=== PATIENT | female | born 1950 | race Caucasian/White ===

== ENCOUNTER 2020-02-17 00:05 | Inpatient (IN) | payer OTHER ==
[~2020-02-17] VITALS: Ht 149.9 cm; Wt 85.3 kg
[2020-02-17] MEDS ORDERED: GLIPIZIDE XL2.5 MG (00:42)
[2020-02-17] MEDS ORDERED: JANUMET 50-5001 EACH (00:42)
[2020-02-17] MEDS ORDERED: ZESTRIL5 MG (00:54)
[2020-02-17] MEDS ORDERED: SYNTHROID150 MCG PO (18:30)
[2020-02-17] MEDS ORDERED: LIPITOR40 M1 PO (18:30)
[2020-02-17] MEDS ORDERED: ADALAT CC30 MG PO (18:31)
[2020-02-17] MEDS ORDERED: PENTOXIFYLLINE400 MG PO (18:32)
[2020-02-17] MEDS ORDERED: RAYOS5 MG PO (18:32)
[2020-02-17] MEDS ORDERED: METOTREXATE PO (18:35)
[2020-02-17] MEDS ORDERED: ALENDRONATE SOD35 MG PO (18:35)
[2020-02-17] MEDS ORDERED: NOXIFOL-D32500 UNIT PO (18:36)
[2020-02-17] MEDS ORDERED: ULTRAM50 MG PO (18:37)
[2020-02-17] MEDS ORDERED: RELAFEN DS1000 MG PO (18:37)
[2020-02-20] MEDS ORDERED: METHOTREXATE2.5 MG (14:52)
[2020-02-23] MEDS ORDERED: FLUCONAZOLE100 MG PO (18:11)
[2020-02-23] MEDS ORDERED: MONODOX100 MG PO (18:11)
[2020-02-23] MEDS ORDERED: INTESTINEX680 M1 PO (18:11)
[2020-02-23] MEDS ORDERED: RAYOS5 MG PO (18:11)
[2020-02-23] MEDS ORDERED: ZYRTEC10 MG PO (18:11)
== END 2020-02-23 18:20 | DRG 4 ==
LOC: ER 00:05 → MEDI 04:48 → O/R 04:48 → MEDI 12:27
PROVIDERS: Surgery; ADMIT Internal Medicine; ATTEND Internal Medicine
PROC: 5A1955Z Respiratory Ventilation, Greater than 96 Consecutive Hours (ICD-10-PCS; 2020-02-17)
PROC: 4A12X4Z Monitoring of Cardiac Electrical Activity, External Approach (ICD-10-PCS; 2020-02-17)
PROC: 05HY33Z Insertion of Infusion Device into Upper Vein, Percutaneous Approach (ICD-10-PCS; 2020-02-17)
PROC: 3E0336Z Introduction of Nutritional Substance into Peripheral Vein, Percutaneous Approach (ICD-10-PCS; 2020-02-17)
PROC: 0B110F4 Bypass Trachea to Cutaneous with Tracheostomy Device, Open Approach (ICD-10-PCS; principal; 2020-02-17 03:00)
PROC: 0CJS8ZZ Inspection of Larynx, Via Natural or Artificial Opening Endoscopic (ICD-10-PCS; 2020-02-18)
DX: T78.3XXA Angioneurotic edema, initial encounter (principal); J96.00 Acute respiratory failure, unspecified whether with hypoxia or hypercapnia; L03.115 Cellulitis of right lower limb; E27.49 Other adrenocortical insufficiency; E03.8 Other specified hypothyroidism; M06.80 Other specified rheumatoid arthritis, unspecified site; Z79.52 Long term (current) use of systemic steroids; I25.10 Atherosclerotic heart disease of native coronary artery without angina pectoris; I11.9 Hypertensive heart disease without heart failure; E11.65 Type 2 diabetes mellitus with hyperglycemia

== ENCOUNTER → 2020-02-28 | Outpatient (CLI) | payer OTHER ==
[~2020-02-28] MED LIST: ADALAT CC30 MG PO; ALENDRONATE SOD35 MG PO; FLUCONAZOLE100 MG PO; GLIPIZIDE XL2.5 MG; INTESTINEX680 M1 PO; JANUMET 50-5001 EACH; LIPITOR40 M1 PO; METHOTREXATE2.5 MG; METOTREXATE PO; MONODOX100 MG PO; NOXIFOL-D32500 UNIT PO; PENTOXIFYLLINE400 MG PO; RAYOS5 MG PO; RELAFEN DS1000 MG PO; SYNTHROID150 MCG PO; ULTRAM50 MG PO; ZESTRIL5 MG; ZYRTEC10 MG PO
== END | disposition home or self-care (01) ==
LOC: OFIC 805 10:05
PROVIDERS: ATTEND Otolaryngology
DX: Z93.0 Tracheostomy status (principal)

== ENCOUNTER → 2020-03-07 | Outpatient (CLI) | payer OTHER | END | disposition home or self-care (01) | LOC: NUCLEAR 12:51 | DX: I82.401 Acute embolism and thrombosis of unspecified deep veins of right lower extremity (principal) ==

== ENCOUNTER 2020-05-30 10:06 | Emergency (ER) | payer OTHER ==
[~2020-05-30] VITALS: Ht 152.4 cm; Wt 85.3 kg
[2020-05-30] MEDS ORDERED: ZYRTEC10 MG PO (12:41)
== END 2020-05-30 12:58 | disposition home or self-care (01) ==
LOC: ER 10:06
DX: K14.8 Other diseases of tongue (principal)

== ENCOUNTER → 2020-06-01 | Outpatient (CLI) | payer OTHER | END | disposition home or self-care (01) | LOC: OFIC 805 10:15 | PROVIDERS: ATTEND Otolaryngology | DX: K14.0 Glossitis (principal); Z93.0 Tracheostomy status ==

== ENCOUNTER 2023-03-07 09:51 | Emergency (ER) | payer OTHER ==
[~2023-03-07] VITALS: Ht 152.4 cm; Wt 74.8 kg
== END 2023-03-07 13:59 ==
LOC: ER 09:51
DX: B34.9 Viral infection, unspecified (principal); I10 Essential (primary) hypertension; E03.9 Hypothyroidism, unspecified; E78.49 Other hyperlipidemia; E11.9 Type 2 diabetes mellitus without complications; Z88.0 Allergy status to penicillin

== ENCOUNTER 2023-04-15 08:59 | Outpatient (CLI) | payer OTHER | END 2023-04-15 09:05 | disposition home or self-care (01) | LOC: RAD 08:59 | PROVIDERS: ATTEND Internal Medicine Rheumatology | DX: M05.70 Rheumatoid arthritis with rheumatoid factor of unspecified site without organ or systems involvement (principal) ==

== ENCOUNTER 2023-04-15 11:55 | Outpatient (CLI) | payer OTHER | END 2023-04-15 11:56 | disposition home or self-care (01) | LOC: LAB 11:55 | PROVIDERS: ATTEND Internal Medicine Rheumatology | DX: M19.90 Unspecified osteoarthritis, unspecified site (principal); M06.4 Inflammatory polyarthropathy; E55.9 Vitamin D deficiency, unspecified; M81.0 Age-related osteoporosis without current pathological fracture ==